=== PATIENT | female | born 1940 | race Caucasian/White ===

== ENCOUNTER 2020-06-24 10:51 | Inpatient (IN) | payer MEDICARE ==
[2020-06-24] MEDS ORDERED: cefTRIAXone\\ROCEPHIN 2 GM VIAL ONE (14:24)
[2020-06-24] MEDS ORDERED: Azithromycin 500 MG VIAL ONE (14:24)
[2020-06-24] MEDS ORDERED: Acetaminophen 650 MG Suppository PR PRN (14:44)
[2020-06-24] MEDS ORDERED: Acetaminophen 325 MG TAB PO PRN (14:44)
[2020-06-24] MEDS ORDERED: Ondansetron ODT 4 MG TAB PO PRN (14:44)
[2020-06-24] MEDS ORDERED: Guaifenesin DM 100-10/5 ML UDCUP PO PRN (14:44)
[2020-06-24] MEDS ORDERED: Ondansetron PF 4 MG/2 ML Vial IVP PRN (14:44)
--- NOTE | 2020-06-24 14:51 | PDOC.HHP ---
Hospitalist HPI Generalized weakness, SOB History of Present Illness: Ms. Rushing is an 79F with a PMHx of HTN, HLD, Hypothyroidism, asthma vs COPD, who presents to the ER for SOB associated with lightheadedness and mailaise. Pt reports that this morning while in the kitchen she became lightheaded and mildly SOB. She also endorsed mild nausea. Her symptoms were relieved by sitting down. Her daughter brought her to the emergency room. She denies any chest pain, palpitations. Denies changes in vision, numbness, weakness, or paraesthesias. Denies abdominal pain, melena or hematochezia. In the ER initial vital signs 155/76, 78, 18, 84% on RA, 98.5. O2 saturation improved to 95% on 2L NC. EKG showed NSR with no ST changes. Initial troponin 0.014. BNP 16.7. CXR showed bilateral patchy infiltrates with an area of questionable infiltrate in the RLL. H/H 15.0/47.0, WBC 8.25. BUN/Cr 17/0.70. Glucose 93. AST/ ALT 74/28. Patient received one dose of ceftriaxone in ER. Allergies/Adverse Reactions: Allergy/AdvReac Type Severity Reaction Status Date / Time No Known Allergies Allergy Unverified 07/28/19 22:17 Home Medications: Medication Instructions Recorded Confirmed Type Lisinopril 40 mg PO DAILY 08/26/16 06/24/20 History Simvastatin [Zocor] 40 mg PO HS 08/26/16 06/24/20 History Albuterol Sulfate HFA (OR) 2 puff FS ASDIR PRN 06/25/20 06/25/20 History [Proventil Hfa (or)] Furosemide [Lasix] 40 mg PO DAILY 06/25/20 06/25/20 History Fluticasone/Salmeterol [Advair 1 inh IH BID #1 disk.w.dev 06/30/20 Rx Diskus 500/50] Levothyroxine Sodium [Synthroid] 200 mcg PO 0600 #60 tab 06/30/20 Rx Metoprolol Succinate [Toprol XL] 50 mg PO DAILY #30 tab 06/30/20 Rx predniSONE [Prednisone] 10 mg PO DAILY #6 tablet 06/30/20 Rx Past History: PMHx: HTN HLD COPD Hypothyroidism PSHx: Hysterectomy Thyroidectomy FHx: No pertitent family hx Social: Denies tobacco, drug, etoh use Hospitalist HPI ROS Constitutional: reports: weakness, malaise. denies: fever, chills, sweats, other Eyes: denies: pain, vision change, conjunctivae inflammation, eyelid inflammation, redness, other ENT: denies: ear pain, ear discharge, nose pain, nose discharge, nose congestion, mouth pain, mouth swelling, throat pain, throat swelling, other Respiratory: reports: shortness of breath. denies: cough, dry, hemoptysis, SOB with excertion, pleuritic pain, sputum, wheezing, other Cardiovascular: reports: light headedness. denies: chest pain, palpitations, orthopnea, paroxysmal noc. dyspnea, edema, other Gastrointestinal: denies: nausea, vomiting, abdominal pain, diarrhea, constipation, melena, hematochezia, other Genitourinary: denies: dysuria, frequency, incontinence, hematuria, retention, other Musculoskeletal: denies: neck pain, shoulder pain, arm pain, back pain, hand pain, leg pain, foot pain, other Skin: denies: rash, lesions, katheryn, bruising, other Neurological: denies: weakness, numbness, incoordination, change in speech, confusion, seizures, other Hospitalist Exam General Appearance: NAD, awake alert General - other findings: Comfortable on 2L NC Eye: PERRL, anicteric sclera ENT: normocephalic atraumatic, no oropharyngeal lesions, moist mucosa Neck: supple, symmetric, no JVD, no thyromegaly, no lymphadenopathy, no carotid bruit Heart: RRR, no murmur, no gallops, no rubs, normal peripheral pulses Respiratory: CTAB, no wheezes, no rales, no ronchi, normal chest expansion, no tachypnea, normal percussion Gastrointestinal: soft, non-tender, non-distended, normal bowel sounds, no palpable masses, no hepatomegaly, no splenomegaly, no bruit Extremities: no cyanosis, no clubbing, no edema Skin: normal turgor, no lesions, no rashes Neurological: cranial nerve grossly intact, normal sensation to touch, no weakness, no focal deficits, no new deficit Musculoskeletal: normal tone, normal strength, no muscle wasting Psychiatric: normal affect, normal behavior, A&O x 3 Hospitalist Results Result Diagrams: 02/21/21 04:20 06/30/20 04:20 Hospitalist H&P A/P Plan: Shortness of Breath with Hypoxia 79F p/w lightheadedness, malaise, and SOB. CXR with bilateral patchy infiltrates with questionable RLL infiltrate. WBC 8.25. Afebrile. Pt with new O2 requirement. Suspect COVID pneumonia vs bacterial pneumonia. Will run stat COVID/Flu swab as well as procal. Plan -Duonebs prn -Tylenol, robitussin prn -Ceftriaxone, azithromycin -COVID, flu swabs pending -Procalcitonin Acute Hypoxic Respiratory Failure Pt with acute hypoxic respiratory failure requiring 2L O2 NC to maintain O2 saturation. Presented at 84% on RA. Suspect likely 2/2 COVID vs bacterial pneumonia. COVID/Flu swab pending. Low suspicion for PE at this time, however if COVID negative will obtain d-dimer. Plan -Supplemental oxygen -Treatment as above -Closely monitor respiratory status Pre-syncope Pt with presyncopal symptoms. Suspect likely 2/2 respiratory cause. No murmurs heard on exam. EKG NSR with no ischemic changes. Will obtain echocardiogram if COVID swab is negative. Continue on telemetry monitoring. No obvious electrolyte abnormalities. No hx of known cardiac disease. Plan -Telemetry monitoring -Mg, TSH, trend troponin -Echocardiogram Hypothyroidism Continue home medication once confirmed. Hypertension Continue home medications if BP allows. Hyperlipidemia Continue home statin. DVT prophylaxis- Lovenox FULL CODE Case discussed with attending physician, Dr. Peters.
[2020-06-24] MEDS ORDERED: Albuterol 200 PUFF (6.7GM INHALER) INH SCH (15:00)
[2020-06-24 15:50] LABS: SARS-CoV-2 NAA Rapid Test Not Detected (NotDetected)
--- NOTE | 2020-06-24 15:58 | RAD ---
PORTABLE UPRIGHT FRONTAL CHEST RADIOGRAPH: Date: 06/24/2020 Time: 11:38 a.m. HISTORY: Shortness of breath. FINDINGS: No pneumothorax is evident. Nonspecific mild increased linear interstitial density noted in the perih ilar regions and both lung bases. Cardiac silhouette is mildly prominent. No focal consolidation or a lveolar edema. IMPRESSION: Portable frontal chest radiograph as detailed above. POS: ESMER
[2020-06-24] MEDS: cefTRIAXone\\ROCEPHIN 1 GM in Sodium Chloride 0.9% 100 ML IVPB SCH (18:14)
[2020-06-24] MEDS: Azithromycin 500 MG in Sodium Chloride 0.9% 250 ML 250 ML IVPB SCH (18:14)
[2020-06-24 18:19] LABS: Troponin I 0.014 ng/mL (< 0.028)
[2020-06-24 18:20] VITALS: BMI 37.5
[2020-06-24 18:20] LABS: ALT (SGPT) 28 U/L (8-55); AST (SGOT) 34 U/L (5-34); Albumin 4.5 g/dL (3.4-4.8); Alkaline Phosphatase 63 U/L (40-110); Anion Gap 17 mmol/L (10-20); BUN (Urea Nitrogen) 17 mg/dL (9.8-20.1); Bilirubin, Total 0.4 mg/dL (0.2-1.2); Calc. Creatinine Clearance 0 mL/min (70-130); Calcium 9.6 mg/dL (7.8-10.44); Carbon Dioxide 26 mmol/L (23-31); Chloride 101 mmol/L (98-107); Globulin 2.8 g/dL (2.4-3.5); Glucose 93 mg/dL (83-110); Potassium 4.3 mmol/L (3.5-5.1); Protein, Total 7.3 g/dL (5.8-8.1); Sodium 140 mmol/L (136-145)
[2020-06-24 19:46] LABS: #Basophils 0.1 thou/uL (0.0-0.2); #Eosinphils 0.2 thou/uL (0.0-0.7); #Lymphocytes 1.8 thou/uL (1.20-3.40); #Neutrophils 5.1 thou/uL (1.40-6.50); %Basophils 1.3 % (0.0-1.0); %Eosinophils 2.9 % (0.0-10.0); %Lymphocytes 22.2 % (21.0-51.0); %Monocytes 11.9 % (0.0-10.0); %Neutrophils 61.8 % (42.0-75.0); Mean Corpuscular HGB CONC 31.9 g/dL (32.0-36.0); Mean Corpuscular Hemoglobin 29.1 pg (27.0-31.0); Mean Corpuscular Volume 91.4 fL (78.0-98.0); Mean Platelet Volume 8.8 fL (7.4-10.4); Platelet Count 183 thou/uL (130-400); RBC Distribution Width 13.5 % (11.5-14.5); Red Blood Cell (RBC) Count 5.14 mill/uL (4.20-5.40); White Blood Cell (WBC) Count 8.3 thou/uL (4.8-10.8)
[2020-06-25 03:40] LABS: #Basophils 0.1 thou/uL (0.0-0.2); #Eosinphils 0.2 thou/uL (0.0-0.7); #Lymphocytes 2.1 thou/uL (1.20-3.40); #Monocytes 1.2 thou/uL (0.11-0.59); #Neutrophils 6.1 thou/uL (1.40-6.50); %Basophils 0.8 % (0.0-1.0); %Eosinophils 2.3 % (0.0-10.0); %Lymphocytes 21.9 % (21.0-51.0); %Monocytes 12.7 % (0.0-10.0); %Neutrophils 62.3 % (42.0-75.0); Hemoglobin 13.4 g/dL (12.0-16.0); Mean Corpuscular HGB CONC 32.3 g/dL (32.0-36.0); Mean Corpuscular Hemoglobin 29.6 pg (27.0-31.0); Mean Corpuscular Volume 91.6 fL (78.0-98.0); Mean Platelet Volume 8.9 fL (7.4-10.4); Platelet Count 190 thou/uL (130-400); RBC Distribution Width 13.4 % (11.5-14.5); Red Blood Cell (RBC) Count 4.54 mill/uL (4.20-5.40); White Blood Cell (WBC) Count 9.7 thou/uL (4.8-10.8)
[2020-06-25 04:01] LABS: Anion Gap 13 mmol/L (10-20); BUN (Urea Nitrogen) 18 mg/dL (9.8-20.1); Calc. Creatinine Clearance 101 mL/min (70-130); Calcium 9.1 mg/dL (7.8-10.44); Carbon Dioxide 30 mmol/L (23-31); Chloride 104 mmol/L (98-107); Glucose 88 mg/dL (83-110); Potassium 4.3 mmol/L (3.5-5.1); Sodium 143 mmol/L (136-145)
[2020-06-25] MEDS ORDERED: Cepastat Lozenges 1 LOZ PO PRN (07:34)
[2020-06-25] MEDS ORDERED: Zolpidem Tartrate 5 MG TAB PO PRN (07:34)
[2020-06-25] MEDS ORDERED: Sodium Chloride 0.65% Nasal 44 ML BOT EA NARE PRN (07:34)
[2020-06-25] MEDS ORDERED: Senokot S 8.6-50 MG TAB PO PRN (07:34)
[2020-06-25] MEDS ORDERED: Loratadine 10 MG TAB PO PRN (07:34)
[2020-06-25] MEDS ORDERED: Loperamide HCl 2 MG CAP PO PRN (07:34)
[2020-06-25] MEDS ORDERED: Bisacodyl 5 MG TAB PO PRN (07:34)
[2020-06-25] MEDS ORDERED: GUAIFENESIN SF SOLN 200 MG/10 ML UDCUP PO PRN (07:34)
[2020-06-25] MEDS ORDERED: Calcium Carbonate 500 MG ChewTAB PO PRN (07:34)
[2020-06-25] MEDS ORDERED: HYDROcodone/Acetaminophen 5/325 mg Tablet PO PRN (07:34)
[2020-06-25] MEDS: Lisinopril 20 MG TAB PO SCH (09:27)
[2020-06-25] MEDS: Enoxaparin Sodium 40 MG/0.4 ML SYRINGE SC SCH (09:28)
--- NOTE | 2020-06-25 11:05 | PDOC.HOSPP ---
- Subjective Encounter Date: 06/25/20 Encounter Time: 08:10 Subjective: Patient seen and examined. No new complaints. No overnight events - Objective Vital Signs & Weight: Vital Signs (12 hours) Temp Pulse Resp BP BP BP BP 06/25/20 09:27 128/58 L 06/25/20 08:00 97.8 F 72 16 128/58 L 06/25/20 03:59 97.9 F 74 16 133/60 06/25/20 00:00 98.3 F 89 16 134/60 06/24/20 23:13 Pulse Ox 06/25/20 09:27 06/25/20 08:00 96 06/25/20 03:59 98 06/25/20 00:00 94 L 06/24/20 23:13 96 Weight Weight 233 lb I&O: 06/24/20 06/25/20 06/26/20 06:59 06:59 06:59 Intake Total 480 Balance 480 Result Diagrams: 06/25/20 03:18 06/25/20 03:18 Radiology Reviewed by me: Yes EKG Reviewed by me: Yes Hospitalist ROS - Review of Systems ENT: denies: ear pain, ear discharge, nose pain, nose discharge, nose congestion, mouth pain, mouth swelling, throat pain, throat swelling, other Respiratory: denies: cough, dry, shortness of breath, hemoptysis, SOB with excertion, pleuritic pain, sputum, wheezing, other Cardiovascular: denies: chest pain, palpitations, orthopnea, paroxysmal noc. dyspnea, edema, light headedness, other Gastrointestinal: denies: nausea, vomiting, abdominal pain, diarrhea, constipation, melena, hematochezia, other Genitourinary: denies: dysuria, frequency, incontinence, hematuria, retention, other Musculoskeletal: denies: neck pain, shoulder pain, arm pain, back pain, hand pain, leg pain, foot pain, other - Medication Medications: Active Medications Generic Name Dose Route Start Last Admin Trade Name Freq PRN Reason Stop Dose Admin Enoxaparin Sodium 40 mg 06/25/20 09:00 06/25/20 09:28 Enoxaparin Sodium 40 Mg/0.4 Ml Syringe SC 40 mg 0900 LINDSAY Administration Ceftriaxone Sodium 1 gm/ 100 mls @ 200 mls/hr 06/24/20 15:00 06/24/20 18:14 Sodium Chloride IVPB Not Given Q24HR LINDSAY Azithromycin 500 mg/ Sodium 250 mls @ 250 mls/hr 06/24/20 15:00 06/24/20 18:14 Chloride IVPB Not Given Q24HR LINDSAY Lisinopril 40 mg 06/25/20 09:00 06/25/20 09:27 Lisinopril 20 Mg Tab PO 40 mg DAILY LINDSAY Administration Sodium Chloride 10 ml 06/24/20 14:44 06/25/20 09:28 Flush - Normal Saline 10 Ml Syringe IVF 10 ml PRN PRN Administration Saline Flush Hospitalist Exam Vitals: Vital Signs (12 hours) Temp Pulse Resp BP BP BP BP 06/25/20 09:27 128/58 L 06/25/20 08:00 97.8 F 72 16 128/58 L 06/25/20 03:59 97.9 F 74 16 133/60 06/25/20 00:00 98.3 F 89 16 134/60 06/24/20 23:13 Pulse Ox 06/25/20 09:27 06/25/20 08:00 96 06/25/20 03:59 98 06/25/20 00:00 94 L 06/24/20 23:13 96 Weight Weight 233 lb General Appearance: NAD, awake alert Eye: PERRL, anicteric sclera ENT: normocephalic atraumatic, no oropharyngeal lesions Neck: supple, symmetric, no JVD, no thyromegaly Heart: no murmur, no gallops, no rubs Respiratory: no wheezes, no rales, no ronchi Gastrointestinal: soft, non-tender, non-distended, normal bowel sounds Extremities: no cyanosis, no clubbing, no edema Skin: normal turgor, no lesions Neurological: no focal deficits Musculoskeletal: normal tone, normal strength Psychiatric: normal affect, normal behavior, A&O x 3 Hosp A/P (1) Acute respiratory failure with hypoxia Code(s): J96.01 - ACUTE RESPIRATORY FAILURE WITH HYPOXIA Status: Resolved (2) Pneumonia Code(s): J18.9 - PNEUMONIA, UNSPECIFIED ORGANISM Status: Suspected (3) Asthma attack Code(s): J45.901 - UNSPECIFIED ASTHMA WITH (ACUTE) EXACERBATION Status: Acute Qualifiers: Asthma severity: mild Asthma persistence: persistent Qualified Code(s): J45.31 - Mild persistent asthma with (acute) exacerbation (4) Dyslipidemia Code(s): E78.5 - HYPERLIPIDEMIA, UNSPECIFIED Status: Chronic (5) Hypertension Code(s): I10 - ESSENTIAL (PRIMARY) HYPERTENSION Status: Chronic (6) Hypothyroidism Code(s): E03.9 - HYPOTHYROIDISM, UNSPECIFIED Status: Chronic (7) Obesity (BMI 30-39.9) Code(s): E66.9 - OBESITY, UNSPECIFIED Status: Chronic - Plan old records reviewed/req, continue antibiotics, respiratory therapy Continue empiric Rocephin and azithromycin Continue respiratory therapy Medication reviewed and continue provide symptomatic and supportive care Follow-up on echocardiography result We will repeat labs tomorrow
[2020-06-25] MEDS: cefTRIAXone\\ROCEPHIN 1 GM in Sodium Chloride 0.9% 100 ML IVPB SCH (14:46)
[2020-06-25] MEDS: Azithromycin 500 MG in Sodium Chloride 0.9% 250 ML 250 ML IVPB SCH (16:20)
[2020-06-25] MEDS: Atorvastatin Calcium 20 MG TAB PO SCH (21:17)
[2020-06-26 05:06] LABS: #Basophils 0.1 thou/uL (0.0-0.2); #Eosinphils 0.3 thou/uL (0.0-0.7); #Lymphocytes 1.7 thou/uL (1.20-3.40); #Monocytes 1.2 thou/uL (0.11-0.59); #Neutrophils 5.1 thou/uL (1.40-6.50); %Basophils 1.1 % (0.0-1.0); %Eosinophils 3.9 % (0.0-10.0); %Lymphocytes 20.1 % (21.0-51.0); %Monocytes 14.4 % (0.0-10.0); %Neutrophils 60.5 % (42.0-75.0); Hemoglobin 13.2 g/dL (12.0-16.0); Mean Corpuscular HGB CONC 32.8 g/dL (32.0-36.0); Mean Corpuscular Hemoglobin 30.7 pg (27.0-31.0); Mean Corpuscular Volume 93.5 fL (78.0-98.0); Mean Platelet Volume 8.9 fL (7.4-10.4); Platelet Count 176 thou/uL (130-400); RBC Distribution Width 13.3 % (11.5-14.5); Red Blood Cell (RBC) Count 4.31 mill/uL (4.20-5.40); White Blood Cell (WBC) Count 8.4 thou/uL (4.8-10.8)
[2020-06-26 05:25] LABS: Anion Gap 12 mmol/L (10-20); BUN (Urea Nitrogen) 16 mg/dL (9.8-20.1); Calc. Creatinine Clearance 99 mL/min (70-130); Calcium 9.1 mg/dL (7.8-10.44); Carbon Dioxide 31 mmol/L (23-31); Chloride 102 mmol/L (98-107); Glucose 110 mg/dL (83-110); Potassium 4.2 mmol/L (3.5-5.1); Sodium 141 mmol/L (136-145)
[2020-06-26] MEDS ORDERED: Levothyroxine 175 MCG TAB PO SCH (06:00)
[2020-06-26] MEDS: Enoxaparin Sodium 40 MG/0.4 ML SYRINGE SC SCH (09:48)
[2020-06-26] MEDS: Lisinopril 20 MG TAB PO SCH (09:48)
[2020-06-26] MEDS: cefTRIAXone\\ROCEPHIN 1 GM in Sodium Chloride 0.9% 100 ML IVPB SCH (14:45)
[2020-06-26] MEDS: Azithromycin 500 MG in Sodium Chloride 0.9% 250 ML 250 ML IVPB SCH (15:56)
--- NOTE | 2020-06-26 17:36 | PDOC.HOSPP ---
- Subjective Encounter Date: 06/26/20 Subjective: Reports feeling better - Objective Vital Signs & Weight: Vital Signs (12 hours) Temp Pulse Resp BP BP Pulse Ox 06/26/20 15:59 98.3 F 96 18 151/67 H 94 L 06/26/20 12:00 97.7 F 85 20 142/66 H 95 06/26/20 08:00 94 L 06/26/20 07:50 97.8 F 76 18 124/60 94 L 06/26/20 07:37 71 16 94 L Weight Weight 233 lb I&O: 06/25/20 06/26/20 06/27/20 06:59 06:59 06:59 Intake Total 480 980 Balance 480 980 Result Diagrams: 06/26/20 04:54 06/26/20 04:54 Hospitalist ROS - Medication Medications: Active Medications Generic Name Dose Route Start Last Admin Trade Name Freq PRN Reason Stop Dose Admin Albuterol/Ipratropium 3 ml 06/25/20 19:00 06/26/20 14:14 Ipratropium/Albuterol Sulfate 3 Ml Neb NEB 3 ml [id number] LINDSAY Administration Atorvastatin Calcium 20 mg 06/25/20 21:00 06/25/20 21:17 Atorvastatin Calcium 20 Mg Tab PO 20 mg HS LINDSAY Administration Enoxaparin Sodium 40 mg 06/25/20 09:00 06/26/20 09:48 Enoxaparin Sodium 40 Mg/0.4 Ml Syringe SC 40 mg 0900 LINDSAY Administration Guaifenesin/Dextromethorphan 15 ml 06/24/20 14:44 06/26/20 09:52 Guaifenesin Dm 100-10/5 Ml Udcup PO 15 ml Q4H PRN Administration Cough Ceftriaxone Sodium 1 gm/ 100 mls @ 200 mls/hr 06/24/20 15:00 06/26/20 14:45 Sodium Chloride IVPB 100 mls Q24HR LINDSAY Administration Azithromycin 500 mg/ Sodium 250 mls @ 250 mls/hr 06/24/20 15:00 06/26/20 15:56 Chloride IVPB 250 mls Q24HR LINDSAY Administration Lisinopril 40 mg 06/25/20 09:00 06/26/20 09:48 Lisinopril 20 Mg Tab PO 40 mg DAILY LINDSAY Administration Sodium Chloride 10 ml 06/24/20 14:44 06/25/20 14:49 Flush - Normal Saline 10 Ml Syringe IVF 10 ml PRN PRN Administration Saline Flush Hospitalist Exam Vitals: Vital Signs (12 hours) Temp Pulse Resp BP BP Pulse Ox 06/26/20 15:59 98.3 F 96 18 151/67 H 94 L 06/26/20 12:00 97.7 F 85 20 142/66 H 95 06/26/20 08:00 94 L 06/26/20 07:50 97.8 F 76 18 124/60 94 L 06/26/20 07:37 71 16 94 L Weight Weight 233 lb General Appearance: NAD Eye: PERRL ENT: normocephalic atraumatic Neck: supple Heart: RRR Respiratory: wheezes (Fine wheezes bilaterally) Gastrointestinal: soft, non-tender Extremities: no cyanosis, no clubbing Hosp A/P (1) Hypothyroidism Code(s): E03.9 - HYPOTHYROIDISM, UNSPECIFIED Status: Chronic (2) Asthma attack Code(s): J45.901 - UNSPECIFIED ASTHMA WITH (ACUTE) EXACERBATION Status: Acute Qualifiers: Asthma severity: mild Asthma persistence: persistent Qualified Code(s): J45.31 - Mild persistent asthma with (acute) exacerbation (3) Dyslipidemia Code(s): E78.5 - HYPERLIPIDEMIA, UNSPECIFIED Status: Chronic (4) Hypertension Code(s): I10 - ESSENTIAL (PRIMARY) HYPERTENSION Status: Chronic - Plan Plan for today 06/26 Pulmonary----on my auscultation I did hear wheezing bilaterally, she does have history of asthma, she is on neb treatments I will add IV Solu-Medrol and I will continue with the current antibiotic repeat regimen. On room air and at rest her pulse ox is 92%, tomorrow we will try to wean her off the oxygen and monitor her pulse ox with ambulation. Endocrinology --- she has history of hypothyroidism, on admission her TSH was found to be very elevated, I will increase her Synthroid dose, she needs to follow-up with her primary care physician and recheck TSH in couple months. Cardiac--- for high blood pressure she is on lisinopril. For DVT prophylaxis she is on Lovenox.
[2020-06-26] MEDS: Atorvastatin Calcium 20 MG TAB PO SCH (20:58)
[2020-06-26] MEDS: methylPREDNISolone Sod Succ 40 MG VIAL IVP SCH (20:59)
[2020-06-27 04:33] LABS: #Monocytes 0.2 thou/uL (0.11-0.59); #Neutrophils 6.8 thou/uL (1.40-6.50); %Basophils 0.3 % (0.0-1.0); %Eosinophils 0.3 % (0.0-10.0); %Monocytes 2.1 % (0.0-10.0); %Neutrophils 85.3 % (42.0-75.0); Hemoglobin 14.2 g/dL (12.0-16.0); Mean Corpuscular HGB CONC 32.4 g/dL (32.0-36.0); Mean Corpuscular Hemoglobin 29.6 pg (27.0-31.0); Mean Corpuscular Volume 91.4 fL (78.0-98.0); Mean Platelet Volume 9.1 fL (7.4-10.4); Platelet Count 202 thou/uL (130-400); RBC Distribution Width 13.3 % (11.5-14.5)
[2020-06-27 05:05] LABS: Anion Gap 15 mmol/L (10-20); BUN (Urea Nitrogen) 13 mg/dL (9.8-20.1); Calc. Creatinine Clearance 104 mL/min (70-130); Calcium 9.4 mg/dL (7.8-10.44); Carbon Dioxide 27 mmol/L (23-31); Chloride 103 mmol/L (98-107); Glucose 169 mg/dL (83-110); Potassium 4.7 mmol/L (3.5-5.1); Sodium 140 mmol/L (136-145)
[2020-06-27] MEDS: Levothyroxine Sodium 100 MCG TAB PO SCH (05:43)
[2020-06-27] MEDS: Enoxaparin Sodium 40 MG/0.4 ML SYRINGE SC SCH (08:14)
[2020-06-27] MEDS: methylPREDNISolone Sod Succ 40 MG VIAL IVP SCH ×2 (08:14→21:50)
[2020-06-27] MEDS: Lisinopril 20 MG TAB PO SCH (08:14)
--- NOTE | 2020-06-27 14:24 | PDOC.HOSPP ---
- Subjective Encounter Date: 06/27/20 Subjective: Feels well in no acute distress - Objective Vital Signs & Weight: Vital Signs (12 hours) Temp Pulse Resp BP BP Pulse Ox 06/27/20 13:34 111 H 18 94 L 06/27/20 11:58 98.8 F 102 H 19 151/75 H 96 06/27/20 07:42 99 18 95 06/27/20 07:37 95 06/27/20 07:34 98.7 F 92 18 179/89 H 95 06/27/20 04:33 98.3 F 77 16 132/63 94 L Weight Weight 233 lb I&O: 06/26/20 06/27/20 06/28/20 06:59 06:59 06:59 Intake Total 980 720 Balance 980 720 Result Diagrams: 06/27/20 04:20 06/27/20 04:21 Hospitalist ROS - Medication Medications: Active Medications Generic Name Dose Route Start Last Admin Trade Name Freq PRN Reason Stop Dose Admin Albuterol/Ipratropium 3 ml 06/25/20 19:00 06/27/20 13:34 Ipratropium/Albuterol Sulfate 3 Ml Neb NEB 3 ml [id number] LINDSAY Administration Atorvastatin Calcium 20 mg 06/25/20 21:00 06/26/20 20:58 Atorvastatin Calcium 20 Mg Tab PO 20 mg HS LINDSAY Administration Enoxaparin Sodium 40 mg 06/25/20 09:00 06/27/20 08:14 Enoxaparin Sodium 40 Mg/0.4 Ml Syringe SC 40 mg 0900 LINDSAY Administration Guaifenesin/Dextromethorphan 15 ml 06/24/20 14:44 06/26/20 09:52 Guaifenesin Dm 100-10/5 Ml Udcup PO 15 ml Q4H PRN Administration Cough Ceftriaxone Sodium 1 gm/ 100 mls @ 200 mls/hr 06/24/20 15:00 06/26/20 14:45 Sodium Chloride IVPB 100 mls Q24HR LINDSAY Administration Azithromycin 500 mg/ Sodium 250 mls @ 250 mls/hr 06/24/20 15:00 06/26/20 15:56 Chloride IVPB 250 mls Q24HR LINDSAY Administration Levothyroxine Sodium 200 mcg 06/27/20 06:00 06/27/20 05:43 Levothyroxine Sodium 100 Mcg Tab PO 200 mcg 0600 LINDSAY Administration Lisinopril 40 mg 06/25/20 09:00 06/27/20 08:14 Lisinopril 20 Mg Tab PO 40 mg DAILY LINDSAY Administration Methylprednisolone Sodium Succinate 40 mg 06/26/20 21:00 06/27/20 08:14 Methylprednisolone Sod Succ 40 Mg Vial IVP 40 mg BID LINDSAY Administration Sodium Chloride 10 ml 06/24/20 14:44 06/25/20 14:49 Flush - Normal Saline 10 Ml Syringe IVF 10 ml PRN PRN Administration Saline Flush Hospitalist Exam Vitals: Vital Signs (12 hours) Temp Pulse Resp BP BP Pulse Ox 06/27/20 13:34 111 H 18 94 L 06/27/20 11:58 98.8 F 102 H 19 151/75 H 96 06/27/20 07:42 99 18 95 06/27/20 07:37 95 06/27/20 07:34 98.7 F 92 18 179/89 H 95 06/27/20 04:33 98.3 F 77 16 132/63 94 L Weight Weight 233 lb General Appearance: NAD, awake alert Eye: PERRL ENT: normocephalic atraumatic Neck: supple, symmetric Heart: RRR, no murmur Respiratory: CTAB Gastrointestinal: soft, non-tender Extremities: no cyanosis, no clubbing Neurological: cranial nerve grossly intact, normal sensation to touch Hosp A/P (1) Hypothyroidism Code(s): E03.9 - HYPOTHYROIDISM, UNSPECIFIED Status: Chronic (2) Asthma attack Code(s): J45.901 - UNSPECIFIED ASTHMA WITH (ACUTE) EXACERBATION Status: Acute Qualifiers: Asthma severity: mild Asthma persistence: persistent Qualified Code(s): J45.31 - Mild persistent asthma with (acute) exacerbation (3) Dyslipidemia Code(s): E78.5 - HYPERLIPIDEMIA, UNSPECIFIED Status: Chronic (4) Hypertension Code(s): I10 - ESSENTIAL (PRIMARY) HYPERTENSION Status: Chronic - Plan Plan for today 06/26 Pulmonary----on my auscultation I did hear wheezing bilaterally, she does have history of asthma, she is on neb treatments I will add IV Solu-Medrol and I will continue with the current antibiotic repeat regimen. On room air and at rest her pulse ox is 92%, tomorrow we will try to wean her off the oxygen and monitor her pulse ox with ambulation. Endocrinology --- she has history of hypothyroidism, on admission her TSH was found to be very elevated, I will increase her Synthroid dose, she needs to follow-up with her primary care physician and recheck TSH in couple months. Cardiac--- for high blood pressure she is on lisinopril. For DVT prophylaxis she is on Lovenox. Plan for today 06/27 Pulmonary ----patient appears to be breathing better, currently she is off oxygen. I plan to continue her IV steroids and if she can go home tomorrow [facility] t send her on a tapering dose of prednisone. Endocrinology--- her levothyroxine dose was increased. Cardiac--- her blood pressure is on the high side she is on lisinopril, may be with the resumption of her Lasix her blood pressure will improve. For DVT prophylaxis she continues to be on Lovenox.
[2020-06-27] MEDS: cefTRIAXone\\ROCEPHIN 1 GM in Sodium Chloride 0.9% 100 ML IVPB SCH (15:15)
[2020-06-27] MEDS: Azithromycin 500 MG in Sodium Chloride 0.9% 250 ML 250 ML IVPB SCH (16:41)
[2020-06-27] MEDS: Atorvastatin Calcium 20 MG TAB PO SCH (21:50)
[2020-06-28 04:16] LABS: #Lymphocytes 1.3 thou/uL (1.20-3.40); #Monocytes 0.6 thou/uL (0.11-0.59); %Basophils 0.2 % (0.0-1.0); %Eosinophils 0.1 % (0.0-10.0); %Lymphocytes 8.4 % (21.0-51.0); %Neutrophils 87.4 % (42.0-75.0); Hemoglobin 14.5 g/dL (12.0-16.0); Mean Corpuscular HGB CONC 30.9 g/dL (32.0-36.0); Mean Corpuscular Hemoglobin 28.1 pg (27.0-31.0); Mean Corpuscular Volume 91.2 fL (78.0-98.0); Platelet Count 248 thou/uL (130-400); RBC Distribution Width 13.5 % (11.5-14.5); Red Blood Cell (RBC) Count 5.15 mill/uL (4.20-5.40)
[2020-06-28 04:40] LABS: Anion Gap 17 mmol/L (10-20); BUN (Urea Nitrogen) 16 mg/dL (9.8-20.1); Calc. Creatinine Clearance 96 mL/min (70-130); Calcium 9.6 mg/dL (7.8-10.44); Carbon Dioxide 25 mmol/L (23-31); Chloride 103 mmol/L (98-107); Glucose 143 mg/dL (83-110); Potassium 4.3 mmol/L (3.5-5.1); Sodium 141 mmol/L (136-145)
[2020-06-28] MEDS: Levothyroxine Sodium 100 MCG TAB PO SCH (05:22)
[2020-06-28] MEDS: Lisinopril 20 MG TAB PO SCH (07:58)
[2020-06-28] MEDS: Furosemide 40 MG TAB PO SCH (07:58)
[2020-06-28] MEDS: methylPREDNISolone Sod Succ 40 MG VIAL IVP SCH ×2 (07:59→21:13)
[2020-06-28] MEDS: Enoxaparin Sodium 40 MG/0.4 ML SYRINGE SC SCH (07:59)
[2020-06-28] MEDS: hydrALAZINE 20 MG/ML VIAL SLOW IVP PRN (11:50)
--- NOTE | 2020-06-28 13:47 | PDOC.HOSPP ---
- Subjective Encounter Date: 06/28/20 Subjective: She was somewhat upset that her blood pressure has been elevated - Objective Vital Signs & Weight: Vital Signs (12 hours) Temp Pulse Resp BP Pulse Ox 06/28/20 07:15 98.6 F 93 16 199/95 H 96 06/28/20 04:54 98.2 F 99 20 136/78 97 Weight Weight 233 lb I&O: 06/27/20 06/28/20 06/29/20 06:59 06:59 06:59 Intake Total 720 1840 Balance 720 1840 Result Diagrams: 06/28/20 03:57 06/28/20 03:57 Hospitalist ROS - Medication Medications: Active Medications Generic Name Dose Route Start Last Admin Trade Name Freq PRN Reason Stop Dose Admin Albuterol/Ipratropium 3 ml 06/25/20 19:00 06/28/20 07:53 Ipratropium/Albuterol Sulfate 3 Ml Neb NEB 3 ml [id number] LINDSAY Administration Atorvastatin Calcium 20 mg 06/25/20 21:00 06/27/20 21:50 Atorvastatin Calcium 20 Mg Tab PO 20 mg HS LINDSAY Administration Enoxaparin Sodium 40 mg 06/25/20 09:00 06/28/20 07:59 Enoxaparin Sodium 40 Mg/0.4 Ml Syringe SC 40 mg 0900 LINDSAY Administration Furosemide 40 mg 06/28/20 09:00 06/28/20 07:58 Furosemide 40 Mg Tab PO 40 mg DAILY LINDSAY Administration Guaifenesin/Dextromethorphan 15 ml 06/24/20 14:44 06/26/20 09:52 Guaifenesin Dm 100-10/5 Ml Udcup PO 15 ml Q4H PRN Administration Cough Hydralazine HCl 10 mg 06/25/20 07:34 06/28/20 11:50 Hydralazine 20 Mg/Ml Vial SLOW IVP 10 mg Q4H PRN Administration SBP > 180 and HR < 70 Ceftriaxone Sodium 1 gm/ 100 mls @ 200 mls/hr 06/24/20 15:00 06/27/20 15:15 Sodium Chloride IVPB 100 mls Q24HR LINDSAY Administration Azithromycin 500 mg/ Sodium 250 mls @ 250 mls/hr 06/24/20 15:00 06/27/20 16:41 Chloride IVPB 250 mls Q24HR LINDSAY Administration Levothyroxine Sodium 200 mcg 06/27/20 06:00 06/28/20 05:22 Levothyroxine Sodium 100 Mcg Tab PO 200 mcg 0600 LINDSAY Administration Lisinopril 40 mg 06/25/20 09:00 06/28/20 07:58 Lisinopril 20 Mg Tab PO 40 mg DAILY LINDSAY Administration Methylprednisolone Sodium Succinate 40 mg 06/26/20 21:00 06/28/20 07:59 Methylprednisolone Sod Succ 40 Mg Vial IVP 40 mg BID LINDSAY Administration Sodium Chloride 10 ml 06/24/20 14:44 06/25/20 14:49 Flush - Normal Saline 10 Ml Syringe IVF 10 ml PRN PRN Administration Saline Flush Hospitalist Exam Vitals: Vital Signs (12 hours) Temp Pulse Resp BP Pulse Ox 06/28/20 07:15 98.6 F 93 16 199/95 H 96 06/28/20 04:54 98.2 F 99 20 136/78 97 Weight Weight 233 lb General Appearance: NAD Eye: PERRL, anicteric sclera ENT: normocephalic atraumatic, no oropharyngeal lesions Neck: supple, symmetric, no JVD, no thyromegaly Heart: RRR, no murmur, no gallops, no rubs Respiratory: CTAB, no wheezes, no rales Gastrointestinal: soft, non-tender, non-distended Extremities: 1+ LE edema Hosp A/P (1) Hypothyroidism Code(s): E03.9 - HYPOTHYROIDISM, UNSPECIFIED Status: Chronic (2) Asthma attack Code(s): J45.901 - UNSPECIFIED ASTHMA WITH (ACUTE) EXACERBATION Status: Acute Qualifiers: Asthma severity: mild Asthma persistence: persistent Qualified Code(s): J45.31 - Mild persistent asthma with (acute) exacerbation (3) Dyslipidemia Code(s): E78.5 - HYPERLIPIDEMIA, UNSPECIFIED Status: Chronic (4) Hypertension Code(s): I10 - ESSENTIAL (PRIMARY) HYPERTENSION Status: Chronic - Plan Plan for today 06/26 Pulmonary----on my auscultation I did hear wheezing bilaterally, she does have history of asthma, she is on neb treatments I will add IV Solu-Medrol and I will continue with the current antibiotic repeat regimen. On room air and at rest her pulse ox is 92%, tomorrow we will try to wean her off the oxygen and monitor her pulse ox with ambulation. Endocrinology --- she has history of hypothyroidism, on admission her TSH was found to be very elevated, I will increase her Synthroid dose, she needs to follow-up with her primary care physician and recheck TSH in couple months. Cardiac--- for high blood pressure she is on lisinopril. For DVT prophylaxis she is on Lovenox. Plan for today 06/27 Pulmonary ----patient appears to be breathing better, currently she is off oxygen. I plan to continue her IV steroids and if she can go home tomorrow [facility] send her on a tapering dose of prednisone. Endocrinology--- her levothyroxine dose was increased. Cardiac--- her blood pressure is on the high side she is on lisinopril, may be with the resumption of her Lasix her blood pressure will improve. For DVT prophylaxis she continues to be on Lovenox. Plan for today 06/28 Pulmonary----patient appears to be breathing much better today I did not hear any wheezing. Endocrinology----since TSH was high her levothyroxine was increased. Cardiac--- her blood pressure did increase today significantly and patient was very concerned about that, I will start her on Toprol, this will delay her being discharged probably to tomorrow. For DVT prophylaxis she continues to be on Lovenox.
[2020-06-28] MEDS ORDERED: methylPREDNISolone Sod Succ 40 MG VIAL IVP SCH (14:00)
[2020-06-28] MEDS: cefTRIAXone\\ROCEPHIN 1 GM in Sodium Chloride 0.9% 100 ML IVPB SCH (15:36)
[2020-06-28] MEDS: Azithromycin 500 MG in Sodium Chloride 0.9% 250 ML 250 ML IVPB SCH (15:36)
[2020-06-28] MEDS: Atorvastatin Calcium 20 MG TAB PO SCH (21:09)
[2020-06-29] MEDS: hydrALAZINE 20 MG/ML VIAL SLOW IVP PRN (04:26)
[2020-06-29 05:43] LABS: #Basophils 0.1 thou/uL (0.0-0.2); #Eosinphils 0.1 thou/uL (0.0-0.7); #Lymphocytes 1.3 thou/uL (1.20-3.40); #Monocytes 0.9 thou/uL (0.11-0.59); #Neutrophils 13.9 thou/uL (1.40-6.50); %Basophils 0.6 % (0.0-1.0); %Eosinophils 0.3 % (0.0-10.0); %Lymphocytes 8.2 % (21.0-51.0); %Monocytes 5.7 % (0.0-10.0); %Neutrophils 85.3 % (42.0-75.0); Hemoglobin 14.8 g/dL (12.0-16.0); Mean Corpuscular HGB CONC 32.3 g/dL (32.0-36.0); Mean Corpuscular Hemoglobin 29.5 pg (27.0-31.0); Mean Corpuscular Volume 91.3 fL (78.0-98.0); Mean Platelet Volume 9.4 fL (7.4-10.4); Platelet Count 256 thou/uL (130-400); RBC Distribution Width 13.6 % (11.5-14.5); Red Blood Cell (RBC) Count 5.01 mill/uL (4.20-5.40); White Blood Cell (WBC) Count 16.3 thou/uL (4.8-10.8)
[2020-06-29] MEDS: Levothyroxine Sodium 100 MCG TAB PO SCH (05:49)
[2020-06-29 06:16] LABS: Anion Gap 15 mmol/L (10-20); BUN (Urea Nitrogen) 21 mg/dL (9.8-20.1); Calc. Creatinine Clearance 104 mL/min (70-130); Calcium 9.3 mg/dL (7.8-10.44); Carbon Dioxide 29 mmol/L (23-31); Chloride 103 mmol/L (98-107); Glucose 128 mg/dL (83-110); Sodium 143 mmol/L (136-145)
[2020-06-29] MEDS: Enoxaparin Sodium 40 MG/0.4 ML SYRINGE SC SCH (07:21)
[2020-06-29] MEDS: Lisinopril 20 MG TAB PO SCH (07:21)
[2020-06-29] MEDS: methylPREDNISolone Sod Succ 40 MG VIAL IVP SCH (07:21)
[2020-06-29] MEDS: Furosemide 40 MG TAB PO SCH (07:23)
--- NOTE | 2020-06-29 09:48 | PDOC.HOSPP ---
- Subjective Encounter Date: 06/29/20 (f/u asthma exac) Encounter Time: 09:46 Subjective: Pt reports her breathing does not feel as good this morning. She denies any pain. reports she continues to have congestion and a dry cough. She denies any n/v/abd pain/diarrhea - Objective Vital Signs & Weight: Vital Signs (12 hours) Temp Pulse Resp BP BP Pulse Ox 06/29/20 07:32 97.4 F L 100 16 192/79 H 93 L 06/29/20 07:21 194/95 H 06/29/20 05:50 99 176/84 H 06/29/20 04:54 92 L 06/29/20 04:26 96 194/95 H 06/29/20 03:20 98.1 F 102 H 20 170/72 H 92 L 06/28/20 23:45 81 170/79 H Weight Weight 233 lb I&O: 06/28/20 06/29/20 06/30/20 06:59 06:59 06:59 Intake Total 1840 680 Balance 1840 680 Result Diagrams: 06/29/20 04:33 06/29/20 04:33 EKG Reviewed by me: Yes (tele - sinus 80-100's overnight) Hospitalist ROS - Medication Medications: Active Medications Generic Name Dose Route Start Last Admin Trade Name Freq PRN Reason Stop Dose Admin Acetaminophen 650 mg 06/24/20 14:44 06/29/20 04:24 Acetaminophen 325 Mg Tab PO 650 mg Q4H PRN Administration Headache/Fever/Mild Pain (1-3) Atorvastatin Calcium 20 mg 06/25/20 21:00 06/28/20 21:09 Atorvastatin Calcium 20 Mg Tab PO 20 mg HS LINDSAY Administration Enoxaparin Sodium 40 mg 06/25/20 09:00 06/29/20 07:21 Enoxaparin Sodium 40 Mg/0.4 Ml Syringe SC 40 mg 0900 LINDSAY Administration Furosemide 40 mg 06/28/20 09:00 06/29/20 07:23 Furosemide 40 Mg Tab PO 40 mg DAILY LINDSAY Administration Guaifenesin/Dextromethorphan 15 ml 06/24/20 14:44 06/26/20 09:52 Guaifenesin Dm 100-10/5 Ml Udcup PO 15 ml Q4H PRN Administration Cough Hydralazine HCl 10 mg 06/25/20 07:34 06/29/20 04:26 Hydralazine 20 Mg/Ml Vial SLOW IVP 10 mg Q4H PRN Administration SBP > 180 and HR < 70 Ceftriaxone Sodium 1 gm/ 100 mls @ 200 mls/hr 06/24/20 15:00 06/28/20 15:36 Sodium Chloride IVPB 100 mls Q24HR LINDSAY Administration Levothyroxine Sodium 200 mcg 06/27/20 06:00 06/29/20 05:49 Levothyroxine Sodium 100 Mcg Tab PO 200 mcg 0600 LINDSAY Administration Lisinopril 40 mg 06/25/20 09:00 06/29/20 07:21 Lisinopril 20 Mg Tab PO 40 mg DAILY LINDSAY Administration Metoprolol Succinate 50 mg 06/29/20 09:00 06/29/20 07:21 Metoprolol Succinate Xl 50 Mg Tab PO 50 mg DAILY LINDSAY Administration Sodium Chloride 10 ml 06/24/20 14:44 06/25/20 14:49 Flush - Normal Saline 10 Ml Syringe IVF 10 ml PRN PRN Administration Saline Flush Hospitalist Exam Vitals: Vital Signs (12 hours) Temp Pulse Resp BP BP Pulse Ox 06/29/20 07:32 97.4 F L 100 16 192/79 H 93 L 06/29/20 07:21 194/95 H 06/29/20 05:50 99 176/84 H 06/29/20 04:54 92 L 06/29/20 04:26 96 194/95 H 06/29/20 03:20 98.1 F 102 H 20 170/72 H 92 L 06/28/20 23:45 81 170/79 H Weight Weight 233 lb General Appearance: NAD Heart: RRR, no murmur Respiratory: no wheezes, no rales, no ronchi Respiratory - other findings: fair air movement Gastrointestinal: soft, non-tender, non-distended, normal bowel sounds Extremities: no cyanosis, no clubbing, no edema Psychiatric: normal affect Hosp A/P (1) Pneumonia Code(s): J18.9 - PNEUMONIA, UNSPECIFIED ORGANISM Status: Suspected (2) Acute respiratory failure with hypoxia Code(s): J96.01 - ACUTE RESPIRATORY FAILURE WITH HYPOXIA Status: Resolved (3) Leukocytosis Code(s): D72.829 - ELEVATED WHITE BLOOD CELL COUNT, UNSPECIFIED Status: Acute (4) Decreased hearing Code(s): H91.90 - UNSPECIFIED HEARING LOSS, UNSPECIFIED EAR Status: Acute Qualifiers: Laterality: unspecified laterality Qualified Code(s): H91.90 - Unspecified hearing loss, unspecified ear (5) Hypothyroidism Code(s): E03.9 - HYPOTHYROIDISM, UNSPECIFIED Status: Chronic (6) Dyslipidemia Code(s): E78.5 - HYPERLIPIDEMIA, UNSPECIFIED Status: Chronic (7) Hypertension Code(s): I10 - ESSENTIAL (PRIMARY) HYPERTENSION Status: Chronic - Plan Asthma exac with Subjective worsening of breathing - schedule xopenex (pt had tachy during hospitalization) tid and continue prn duoneb - schedule brovana and budesonide - change IV steroids to prednisone - continue to monitor - ambulatory desat study prior to discharge Tachycardia - monitor HTN - uncontrolled - likely in part due to steroids - continue meds started during this hospitalization - Toprol, lisinopril and home med of lasix Hold on discharge until breathing more comfortable and pt able to ambulate without difficulty dvt prophy - lovenox gi prophy - on home ppi code status full reviewed plan of care with the patient, no questions or further needs at end of eval
[2020-06-29] MEDS: Levalbuterol HCl 0.63 MG/3 ML NEB NEB SCH ×2 (15:03→19:06)
[2020-06-29] MEDS: cefTRIAXone\\ROCEPHIN 1 GM in Sodium Chloride 0.9% 100 ML IVPB SCH (16:40)
--- NOTE | 2020-06-29 18:12 | EKG ---
Test Reason : Blood Pressure : / mmHG Vent. Rate : 078 BPM Atrial Rate : 078 BPM P-R Int : 154 ms QRS Dur : 098 ms QT Int : 410 ms P-R-T Axes : 036 -15 111 degrees QTc Int : 467 ms Normal sinus rhythm Left ventricular hypertrophy with repolarization abnormality Abnormal ECG Confirmed by SUE Root, CHRISTA ([id number]), subeditor MALINA SPENCE ([id number]) on 06/29/2020 6:12:10 PM Referred By: Confirmed By:CHRISTA ROGERS M.D.
[2020-06-29] MEDS: Budesonide 0.5 MG/2 ML NEB NEB SCH (19:09)
[2020-06-29] MEDS: Arformoterol 15 MCG/2 ML NEB NEB SCH (19:09)
[2020-06-29] MEDS: Atorvastatin Calcium 20 MG TAB PO SCH (21:17)
[2020-06-30 04:38] LABS: #Basophils 0.1 thou/uL (0.0-0.2); #Lymphocytes 2.9 thou/uL (1.20-3.40); #Monocytes 1.9 thou/uL (0.11-0.59); #Neutrophils 10.7 thou/uL (1.40-6.50); %Basophils 0.4 % (0.0-1.0); %Eosinophils 0.2 % (0.0-10.0); %Lymphocytes 18.7 % (21.0-51.0); %Monocytes 12.2 % (0.0-10.0); %Neutrophils 68.4 % (42.0-75.0); Mean Corpuscular HGB CONC 32.5 g/dL (32.0-36.0); Mean Corpuscular Hemoglobin 29.7 pg (27.0-31.0); Mean Corpuscular Volume 91.4 fL (78.0-98.0); Mean Platelet Volume 8.7 fL (7.4-10.4); Platelet Count 265 thou/uL (130-400); RBC Distribution Width 13.8 % (11.5-14.5); Red Blood Cell (RBC) Count 5.05 mill/uL (4.20-5.40); White Blood Cell (WBC) Count 15.6 thou/uL (4.8-10.8)
[2020-06-30 05:07] LABS: Anion Gap 17 mmol/L (10-20); BUN (Urea Nitrogen) 27 mg/dL (9.8-20.1); Calc. Creatinine Clearance 94 mL/min (70-130); Calcium 9.2 mg/dL (7.8-10.44); Carbon Dioxide 25 mmol/L (23-31); Chloride 102 mmol/L (98-107); Glucose 95 mg/dL (83-110); Potassium 3.9 mmol/L (3.5-5.1); Sodium 140 mmol/L (136-145)
[2020-06-30] MEDS: Levothyroxine Sodium 100 MCG TAB PO SCH (05:54)
[2020-06-30] MEDS: Levalbuterol HCl 0.63 MG/3 ML NEB NEB SCH (07:12)
[2020-06-30] MEDS: Budesonide 0.5 MG/2 ML NEB NEB SCH (07:16)
[2020-06-30] MEDS: Arformoterol 15 MCG/2 ML NEB NEB SCH (07:16)
[2020-06-30] MEDS ORDERED: predniSONE 20 MG TAB PO SCH (08:00)
[2020-06-30] MEDS: Enoxaparin Sodium 40 MG/0.4 ML SYRINGE SC SCH (09:11)
[2020-06-30] MEDS: Furosemide 40 MG TAB PO SCH (09:11)
[2020-06-30] MEDS: Lisinopril 20 MG TAB PO SCH (09:12)
--- NOTE | 2020-06-30 10:14 | DIS ---
DATE OF ADMISSION: 06/24/2020 DATE OF DISCHARGE: 06/30/2020 MEDICATIONS: Reconciled at discharge. New medications, 1. Prednisone 10 mg tablets 2 tablets daily for 2 days, then one tablet daily for 2 days. 2. Advair Diskus 500/50 one inhalation b.i.d. 3. Toprol-XL 50 mg p.o. daily. Of note are metoprolol prescription for 30 days and one Advair Diskus prescribed. Further refills from the Primary Care Physician. Medications to resume, 1. Albuterol 2 puffs every 4 hours as needed. 2. Furosemide 40 mg daily. 3. Lisinopril 40 mg daily. 4. Levothyroxine 175 mcg daily. 5. Simvastatin 40 mg at bedtime. FINAL DIAGNOSES: 1. Acute respiratory failure with hypoxia. 2. Asthma exacerbation, cannot rule out chronic obstructive pulmonary disease. 3. Hypertension, improved control. SECONDARY DIAGNOSES: 1. Hypothyroidism. 2. Dyslipidemia. 3. Concentric left ventricular hypertrophy with an ejection fraction of 50% to 55%. HISTORY OF PRESENT ILLNESS: Ms. Rushing is an 79-year-old female with a history of allergies, but by report, no history of asthma, who presented to the emergency room complaining of shortness of breath. The patient was found to have an initial room air oxygen saturation of 84% on room air, and a chest x-ray, which showed infiltrates and a questionable area of infiltrate on right lower lobe. She was started on antibiotics, nebulizer therapy, and hospitalist called for admission. HOSPITAL COURSE: The patient had some improvement in this hospitalization early on. After admission, she was started on steroids and scheduled on nebulizer therapy. Yesterday, she was continuing to have symptomatic shortness of breath, and the long-acting bronchodilator and inhaled steroid were added. Overnight into today, she has done well. She has been off oxygen over the past few days and ambulatory desat study was normal. The patient has been treated with a full course of azithromycin and one week of ceftriaxone, and therefore antibiotics will not be prescribed at discharge. She will be on a small tapering dose of steroids, and we will continue the combination of inhaled steroid and long-acting bronchodilator in the outpatient setting. Blood pressures during this hospitalization have been uncontrolled and up into the 190's systolic. The patient was continued on her home lisinopril and furosemide. In addition, due to tachycardia at times, she was started on Toprol-XL, which she has tolerated well. She will continue on this in the outpatient setting and will need followup with her primary care provider for management. Overall, the patient has done well and she does meet criteria for discharge to home. Of note, the patient's TSH was 45 and her levothyroxine was increased to 200 mcg daily. This will need to be followed up in the outpatient setting. PHYSICAL EXAMINATION: VITAL SIGNS: On day of discharge, blood pressure 151/72, temperature 97.9, pulse 82, respirations 16, and saturations 97% on room air. GENERAL: Awake, alert, responsive, not in apparent distress, able to speak in full sentences. LUNGS: Good air movement. No audible wheezing, rhonchi, or rales. HEART: Normal S1 and S2. Regular rate and rhythm. No significant murmurs. ABDOMEN: Soft with present bowel sounds. EXTREMITIES: No edema. TELEMETRY: Sinus rhythm with a rate of 80 to 100. For approximately 1.5 hours overnight, her pulse was in the 120s to 130s, but this resolved. ACUTE FINDINGS AND TEST RESULTS: CBC today; 15.6, 15, 46.2, 265. Of note yesterday, white blood cell count was 16.3 and the day prior at 16 while the patient has been on steroids. D-dimer 0.54 on June 24. Chemistry; 140, 3.9, 102, 25, 27, 0.78, 25. TSH was 45. Troponins x3 were negative. Procalcitonin 0.06. LFTs on 06/24; T-bilirubin 0.4, AST 34, ALT 28, alkaline phosphatase 63, total protein 7.3, albumin 4.5. Echocardiogram on 06/25; EF of 50% to 55%, concentric LVH, impaired relaxation compatible with diastolic dysfunction, mild tricuspid regurgitation. Chest x-ray performed on June 24, nonspecific mild increased linear interstitial density in the perihilar regions and both lung bases. FOLLOWUP: Followup is with the primary care provider recommended this week for evaluation of blood pressure, breathing, and to arrange for followup thyroid testing and to continue titrating the levothyroxine. DIET: Heart healthy. ACTIVITY: As tolerated. CODE STATUS: Full. DISCHARGE DISPOSITION: Home. Reviewed with the patient this hospitalization, the medication changes, the importance of followup, and the seek care precautions. She demonstrates understanding. Total time coordinating discharge is 35 minutes. Job ID: [id number] CLAUDINE
[2020-06-30] MEDS: cefTRIAXone\\ROCEPHIN 1 GM in Sodium Chloride 0.9% 100 ML IVPB SCH (11:17)
[2020-06-30 11:23] VITALS: BP 148/72; TEMP 97.7
== END 2020-06-30 13:04 | disposition home or self-care (01) | DRG 193 ==
LOC: ERS 10:51 → 2NO 14:22
PROVIDERS: ADMIT Internal Medicine; ATTEND Family Medicine
DX: J18.9 Pneumonia, unspecified organism (principal); J96.01 Acute respiratory failure with hypoxia; J45.31 Mild persistent asthma with (acute) exacerbation; I10 Essential (primary) hypertension; E78.5 Hyperlipidemia, unspecified; E03.9 Hypothyroidism, unspecified; H91.90 Unspecified hearing loss, unspecified ear; Z20.822 Contact with and (suspected) exposure to COVID-19; E66.9 Obesity, unspecified; Z90.710 Acquired absence of both cervix and uterus; Z90.89 Acquired absence of other organs; Z68.37 Body mass index [BMI] 37.0-37.9, adult
CPT/HCPCS: 0240U; 36415; 71045; 80048; 80053; 83735; 83880; 84145; 84443; 84484; 85025; 85379; 93005; 93306; 94640; 96365; 96367; J0360; J0456; J0696; J1650; J2920; J3490; J7050; J7512; J7614; J7620; J7626